=== PATIENT | male | born 1980 | race Caucasian/White ===

== ENCOUNTER 2020-05-17 13:59 | Emergency (ER) | payer MEDICAID ==
[2020-05-17] MEDS ORDERED: Lidocaine 1% with EPINEPHrine 1:100,000 50 ML MDV SUBCUT STA (14:34)
[2020-05-17] MEDS ORDERED: Bacitracin Oint 1 GM U/D Packet TOP ONE (14:34)
--- NOTE | 2020-05-17 14:37 | EDM.PDOC ---
ED HPI GENERAL MEDICAL PROBLEM - General Chief Complaint: Laceration Stated Complaint: CUT LEG WITH CHAINSAW Time Seen by Provider: 05/17/20 14:30 Source of Information: Reports: Patient, RN Notes Reviewed History Limitations: Reports: No Limitations - History of Present Illness INITIAL COMMENTS - FREE TEXT/NARRATIVE: 39-year-old gentleman presents emergency department today with a chainsaw injury, he was cutting stumps in the backyard this all went through the stumps and into his left thigh just above the knee. He has no difficulty ambulating - Related Data Allergies Allergy/AdvReac Type Severity Reaction Status Date / Time No Known Allergies Allergy Verified 05/17/20 14:03 Home Meds: Home Meds DULoxetine [Cymbalta] 20 mg PO DAILY 07/26/17 [History] Gabapentin [Neurontin] 600 mg PO TID 07/26/17 [History] QUEtiapine [SEROquel XR] 50 mg PO DAILY 05/17/20 [History] lamoTRIgine [Lamotrigine] 100 mg PO DAILY 05/17/20 [History] Past Medical History Musculoskeletal History: Reports: Back Pain, Chronic, Other (See Below) Psychiatric History: Reports: Depression Dermatologic History: Reports: None - Infectious Disease History Infectious Disease History: Reports: Chicken Pox - Past Surgical History Head Surgeries/Procedures: Reports: None Musculoskeletal Surgical History: Reports: None Dermatological Surgical History: Reports: Other (See Below) Social & Family History - Tobacco Use Tobacco Use Status *Q: Current Every Day Tobacco User Years of Tobacco use: 25 Packs/Tins Daily: 0.5 Used Tobacco, but Quit: No Second Hand Smoke Exposure: Yes - Caffeine Use Caffeine Use: Reports: Coffee - Recreational Drug Use Recreational Drug Use: No ED ROS GENERAL - Review of Systems Review Of Systems: See Below Constitutional: Reports: No Symptoms Skin: Reports: Wound ED EXAM, SKIN/RASH Exam: See Below Text/Narrative:: Examination of the left leg he does have full range of motion of the leg quick inspection before anesthetic I do not appreciate any tenderness the wound does go down to the fascial plane is approximately 5 cm x 1 cm bleeding is controlled ED SKIN PROCEDURES - Laceration/Wound Repair Left Leg Appearance: Subcutaneous, Irregular Distal NVT: Neuro & Vascular Intact, No Tendon Injury Anesthetic Type: Local Local Anesthesia - Lidocaine (Xylocaine): 1% with EPI Local Anesthetic Volume: 4cc Skin Prep: Saline Saline Irrigation (cc's): 500 Exploration/Debridement/Repair: Wound Explored, In a Bloodless Field, Explored to Base Closed with: Sutures Lac/Wound length In cm: 3 Suture Size: 3-0 # of Sutures: 11 Suture Type: Nylon, Interrupted Suture Size: 3-0 # of Sutures: 6 Repaired with: Vicryl Tetanus Status Addressed: Yes Complications: No Course - Vital Signs Last Recorded V/S: Last Vital Signs Temp 101.7 F H 05/17/20 14:48 Pulse 96 05/17/20 14:48 Resp 19 05/17/20 14:48 BP 132/90 05/17/20 14:48 Pulse Ox 93 L 05/17/20 14:48 - Orders/Labs/Meds Orders: Active Orders 24 hr Category Date Time Status Peripheral IV Insertion Adult [OM.PC] Urgent Oth 05/17/20 14:41 Ordered Meds: Medications Discontinued Medications Generic Name Dose Route Start Last Admin Trade Name Freq PRN Reason Stop Dose Admin Bacitracin 1 dose 05/17/20 14:34 05/17/20 15:16 Bacitracin Oint 1 Gm U/D Packet TOP 05/17/20 14:35 1 dose ONETIME ONE Administration Lactated Ringer's 1,000 mls @ 999 mls/hr 05/17/20 14:45 Ringers, Lactated IV ASDIRECTED ANABELLA Lidocaine/Epinephrine 20 ml 05/17/20 14:34 05/17/20 15:17 Lidocaine 1% With Epinephrine 1:100,000 50 Ml Mdv SUBCUT 05/17/20 14:35 20 ml NOW STA Administration Sodium Chloride 10 ml 05/17/20 14:41 Sodium Chloride 0.9% 10 Ml Syringe FLUSH ASDIRECTED PRN Keep Vein Open Departure - Departure Time of Disposition: 15:49 Disposition: Home, Self-Care 01 Condition: Fair Clinical Impression: Laceration of left leg Qualifiers: Encounter type: initial encounter Qualified Code(s): S81.812A - Laceration without foreign body, left lower leg, initial encounter - Discharge Information Instructions: Laceration Care, Adult Referrals: PCP,None [Primary Care Provider] - Forms: ED Department Discharge Additional Instructions: Suture removal in 10 days, follow wound care instruction sheet return to clinic or emergency department for suture removal Sepsis Event Note (ED) - Evaluation Sepsis Screening Result: No Definite Risk - Focused Exam Vital Signs: Vital Signs Temp Pulse Resp BP Pulse Ox 05/17/20 14:48 101.7 F H 96 19 132/90 93 L 05/17/20 14:12 98.1 F 92 18 99 05/17/20 14:07 98.1 F 92 18 99 - My Orders Last 24 Hours: My Active Orders 05/17/20 14:41 Peripheral IV Insertion Adult [OM.PC] Urgent - Assessment/Plan Last 24 Hours: My Active Orders 05/17/20 14:41 Peripheral IV Insertion Adult [OM.PC] Urgent Plan: Assessment Acuity = acute Site and laterality = 3 cm laceration Etiology = chainsaw trauma Manifestations = none Location of injury = Home Lab values = none Plan Suture removal in 10 days, follow-up with primary care return to clinic follow wound care instructions, tetanus updated today This note was dictated using [employer] voice recognition software please call with any questions on syntax or grammar.
[2020-05-17] MEDS ORDERED: Sodium Chloride 0.9% 10 ML Syringe FLUSH PRN (14:41)
[2020-05-17] MEDS ORDERED: Lactated Ringers 1,000 ML IV SCH (14:45)
[2020-05-17 14:49] VITALS: BP 132/90; PULSE 96
[2020-05-17] MEDS ORDERED: Diphtheria,Pertussis(Acell),Tetanus Vaccine 0.5 ML Syringe IM ONE (15:50)
== END 2020-05-17 16:07 | disposition home or self-care (01) ==
LOC: JP.ED 13:59
DX: S81.812A Laceration without foreign body, left lower leg, initial encounter (principal); Z72.0 Tobacco use; Z79.899 Other long term (current) drug therapy; W29.3XXA Contact with powered garden and outdoor hand tools and machinery, initial encounter
CPT/HCPCS: 12002; 90471; 90715; 99282-25

== ENCOUNTER 2022-07-11 11:23 | Emergency (ER) | payer OTHER, MEDICAID ==
[2022-07-11 11:31] VITALS: BP 123/92; PULSE 103
[2022-07-11] MEDS ORDERED: Ketorolac 30 MG/ML SDV IM ONE (12:02)
[2022-07-11] MEDS ORDERED: Diazepam 5 MG Tab PO ONE (12:02)
[2022-07-11 13:23] LABS: APPEARANCE,URINE SLIGHTLY CLOUDY (CLEAR); BILIRUBIN,URINE SMALL (NEGATIVE); COLOR,URINE YELLOW (YELLOW); GLUCOSE,URINE NEGATIVE (NEGATIVE); KETONES,URINE NEGATIVE (NEGATIVE); LEUKOCYTE ESTERASE,URINE NEGATIVE (NEGATIVE); NITRITE,URINE NEGATIVE (NEGATIVE); OCCULT BLOOD,URINE NEGATIVE (NEGATIVE); PH,URINE 5.5 (5.0-8.0); PROTEIN,URINE TRACE mg/dL (NEGATIVE); UROBILINOGEN,URINE 0.2 EU/dL (0.2-1.0)
[2022-07-11 13:36] LABS: AMPHETAMINES SCREEN, URINE NEGATIVE (NEGATIVE); BARBITURATE SCREEN,URINE NEGATIVE (NEGATIVE); BENZODIAZEPINES SCREEN,URINE NEGATIVE (NEGATIVE); METHADONE SCREEN, URINE NEGATIVE (NEGATIVE); METHAMPHETAMINES SCREEN, URINE NEGATIVE (NEGATIVE); OXYCODONE SCREEN,URINE NEGATIVE (NEGATIVE); PROPOXYPHENE SCREEN,URINE NEGATIVE (NEGATIVE); THC SCREEN,URINE 50 NG/ML NEGATIVE (NEGATIVE)
[2022-07-11 13:36] LABS: AMORPHOUS SEDIMENT,URINE FEW; BACTERIA,URINE RARE; EPITHELIAL CELLS,URINE RARE; MUCUS,URINE MANY; RBC,URINE NOT SEEN (0-5); WBC,URINE 0-5 (0-5)
== END 2022-07-11 14:20 | disposition home or self-care (01) ==
LOC: JP.ED 11:23
DX: M62.830 Muscle spasm of back (principal); F17.210 Nicotine dependence, cigarettes, uncomplicated
CPT/HCPCS: 72100; 80305; 81001; 96372; 99283; A9270; J1885

== ENCOUNTER 2023-01-07 09:28 | Observation (INO) | payer MEDICAID, OTHER ==
[2023-01-07] MEDS ORDERED: Sodium Chloride 0.9% 10 ML Syringe FLUSH PRN (09:35)
[2023-01-07] MEDS ORDERED: fentaNYL 100 MCG/2 ML SDV IVPUSH ONE ×2 (09:35→13:40)
[2023-01-07 09:43] LABS: HEMOGLOBIN 17.1 g/dL (12.9-16.9); MEAN CORPUSCULAR HEMOGLOBIN 33.7 pg (31.6-35.5); MEAN CORPUSCULAR HGB CONC 34.9 g/dL (31.6-35.5); MEAN CORPUSCULAR VOLUME 96.6 fL (81.4-99.0); RED BLOOD CELL COUNT 5.07 M/uL (4.14-5.76); WHITE BLOOD CELL COUNT,WBC 18.8 K/uL (3.2-11.0)
[2023-01-07] MEDS ORDERED: fentaNYL 50 MCG/ML SDV IVPUSH ONE ×2 (09:45→13:45)
[2023-01-07 09:58] LABS: ANION GAP 10.2 mmol/L (5.0-14.0); CALCIUM 8.7 mg/dL (8.5-10.1); CREATININE 0.9 mg/dL (0.8-1.3); EST CRCL DRUG DOSING (CG) 118.82 mL/min; POTASSIUM,K 3.9 mmol/L (3.6-5.2)
[2023-01-07] MEDS ORDERED: Ketorolac 30 MG/ML SDV IVPUSH ONE (10:32)
[2023-01-07] MEDS ORDERED: Sodium Chloride 0.9% 10 ML Syringe FLUSH ONE (10:55)
[2023-01-07] MEDS ORDERED: Iopamidol 755 Mg/ML 100 ML Bottle IV SCH (11:00)
[2023-01-07] MEDS ORDERED: Sodium Chloride 0.9% 100 ML IV SCH (11:00)
[2023-01-07] MEDS ORDERED: Acetaminophen 325 MG Tab PO ONE (13:17)
[2023-01-07] MEDS ORDERED: Ondansetron 4 MG/2 ML SDV IV PRN (15:35)
[2023-01-07] MEDS ORDERED: Sennosides/Docusate Sodium 50-8.6 MG Tab PO PRN (15:35)
[2023-01-07] MEDS ORDERED: Magnesium Hydroxide 400 MG/5 ML Susp 30 ML Cup PO PRN (15:35)
[2023-01-07] MEDS ORDERED: Ondansetron 4 MG Tab.DIS PO PRN (15:35)
[2023-01-07] MEDS ORDERED: oxyCODONE 5 MG Tab PO PRN (15:35)
[2023-01-07] MEDS ORDERED: HYDROmorphone 1 MG/ML Syringe IVPUSH PRN (15:35)
[2023-01-07] MEDS ORDERED: Nicotine 21 MG/24 Hr Patch TRDERM ONE (16:25)
[2023-01-07] MEDS: HYDROmorphone 1 MG/ML Syringe IVPUSH PRN (18:36)
[2023-01-07] MEDS: oxyCODONE 5 MG Tab PO PRN (19:44)
[2023-01-07] MEDS: Acetaminophen 325 MG Tab PO PRN (19:44)
[2023-01-07] MEDS ORDERED: Sodium Chloride 0.9% 1,000 ML IV SCH (23:59)
[2023-01-08] MEDS: oxyCODONE 5 MG Tab PO PRN ×4 (00:06→16:03)
[2023-01-08 06:07] LABS: HEMATOCRIT 41.2 % (38.4-49.7); HEMOGLOBIN 14.2 g/dL (12.9-16.9); MEAN CORPUSCULAR HEMOGLOBIN 33.5 pg (31.6-35.5); MEAN CORPUSCULAR HGB CONC 34.5 g/dL (31.6-35.5); MEAN CORPUSCULAR VOLUME 97.2 fL (81.4-99.0); RED BLOOD CELL COUNT 4.24 M/uL (4.14-5.76); WHITE BLOOD CELL COUNT,WBC 10.7 K/uL (3.2-11.0)
[2023-01-08 06:29] LABS: CALCIUM 8.1 mg/dL (8.5-10.1); CREATININE 0.9 mg/dL (0.8-1.3); EST CRCL DRUG DOSING (CG) 110.68 mL/min; POTASSIUM,K 3.7 mmol/L (3.6-5.2)
[2023-01-08 06:30] LABS: ANION GAP 8.7 mmol/L (5.0-14.0)
[2023-01-08] MEDS ORDERED: Propofol 200 MG/20 ML SDV ONE (07:04)
[2023-01-08] MEDS ORDERED: Dexamethasone 4 MG/ML SDV ONE (07:04)
[2023-01-08] MEDS ORDERED: fentaNYL 250 MCG/5 ML SDV ONE (07:04)
[2023-01-08] MEDS ORDERED: Neostigmine Methylsulfate 1 MG/ML 5 ML Syringe ONE (07:04)
[2023-01-08] MEDS ORDERED: Glycopyrrolate 0.2 MG/ML 5 ML MDV ONE (07:04)
[2023-01-08] MEDS ORDERED: Rocuronium 50 MG/5 ML Vial ONE (07:04)
[2023-01-08] MEDS ORDERED: Ondansetron 4 MG/2 ML SDV ONE (07:04)
[2023-01-08] MEDS ORDERED: Bupivacaine 0.5% 30 ML SDV ONE (07:05)
[2023-01-08] MEDS: HYDROmorphone 1 MG/ML Syringe IVPUSH PRN ×2 (08:04→12:45)
[2023-01-08] MEDS ORDERED: ceFAZolin 1 GM Vial ONE (08:20)
[2023-01-08] MEDS ORDERED: Sodium Chloride 0.9% 10 ML ONE (08:20)
[2023-01-08] MEDS ORDERED: Nicotine 21 MG/24 Hr Patch TRDERM SCH (09:00)
[2023-01-08] MEDS ORDERED: fentaNYL 100 MCG/2 ML SDV ONE (09:44)
[2023-01-08] MEDS: Acetaminophen 325 MG Tab PO PRN (14:26)
[2023-01-08 16:04] VITALS: BP 143/95; PULSE 99
== END 2023-01-08 18:25 | disposition home or self-care (01) ==
LOC: JP.ED 09:28 → INTOOBSV 15:08 → JP.MS 15:08
PROVIDERS: ADMIT Internal Medicine; ATTEND Specialist
DX: S81.032A Puncture wound without foreign body, left knee, initial encounter (principal); F17.210 Nicotine dependence, cigarettes, uncomplicated; F32.A Depression, unspecified; Z20.822 Contact with and (suspected) exposure to COVID-19; W34.00XA Accidental discharge from unspecified firearms or gun, initial encounter
CPT/HCPCS: 36415; 73560; 73706; 80048; 85027; 87635; 99221; 99238; A9270; J0690; J1100; J1170; J1885; J2405; J2704; J2710; J3010; J3490; Q9967; 96374; 96375; 96376; 99285-25; U0002